=== PATIENT | female | born 1945 | race Caucasian/White ===

== ENCOUNTER 2016-12-20 09:15 | Inpatient (IN) | payer BC ==
[2016-12-19 16:01] LABS: BASOPHILS 1.2 %; BASOPHILS ABSOLUTE 0.06 10/3/uL (0.0-0.16); EOSINOPHILS 6.5 %; EOSINOPHILS ABSOLUTE 0.32 10/3/uL (0.0-0.53); HEMATOCRIT 32.2 % (36.0-48.0); HEMOGLOBIN 10.5 g/dL (12.0-16.0); IMMATURE GRANULOCYTES 0.2 %; IMMATURE GRANULOCYTES ABSOLUTE 0.01 10/3/uL (0.0-0.11); LYMPHOCYTES ABSOLUTE 1.39 10/3/uL (0.67-4.30); MEAN CORPUS HGB CONC 32.6 g/dL (32.0-36.0); MEAN CORPUSCULAR HEMOGLOB 30.9 pg (26.0-34.0); MEAN CORPUSCULAR VOLUME 94.7 fL (80-100); MEAN PLATELET VOLUME 10.1 fL (9.2-13.0); MONOCYTES 12.3 %; MONOCYTES ABSOLUTE 0.61 10/3/uL (0.21-1.20); NEUTROPHILS 51.8 %; NEUTROPHILS ABSOLUTE 2.57 10/3/uL (2.02-8.40); PLATELET COUNT 279 10/3/uL (150-400); RBC DISTRIBUTION WIDTH 15.7 % (12.0-16.0)
[2016-12-19 16:02] LABS: MANUAL DIFF NO %
[2016-12-19 16:08] LABS: INTERNATIONAL NORMAL RATI 1.1 UNITS (-); PROTIME (NOT ORD) 13.7 SEC (12.0-14.5)
[2016-12-19 16:22] LABS: A/G RATIO 1.1 (0.7-1.9); ALBUMIN 3.4 G/DL (3.5-5.0); ALKALINE PHOSPHATASE 66 U/L (45-117); BUN (BLOOD UREA NITROGEN) 17 MG/DL (6-23); CALCIUM, SERUM 8.8 MG/DL (8.5-10.4); CHLORIDE, SERUM 108 MMOL/L (96-112); CO2 (CARBON DIOXIDE) 30 MMOL/L (24-34); CREATININE 1.03 MG/DL (0.55-1.02); GFR AFRICAN AMERICAN 62 ML/MIN (>=60); GFR NON AFRICAN AMERICAN 54 ML/MIN (>=60); GLOBULIN 3.2 G/DL (2.5-4.1); POTASSIUM, SERUM 4.2 MMOL/L (3.5-5.3); SGOT(AST) 16 U/L (5-40); SGPT(ALT) 18 U/L (5-65); SODIUM, SERUM 143 MMOL/L (135-148); TOTAL BILIRUBIN 0.6 MG/DL (0-1.2); TOTAL PROTEIN 6.6 G/DL (6.0-8.5)
[2016-12-19 16:23] LABS: GLUCOSE, SERUM 154 MG/DL (60-99)
[2016-12-19 18:03] LABS: ASCORBIC ACID (UR NOT ORDER) 40 (NEG); BILIRUBIN, URINE NEGATIVE (NEG); KETONE, URINE NEGATIVE (NEG); LEUKOCYTE ESTERASE(NOT OR LARGE (NEG); WBC (NOT ORDERED) (RFLEX) 102 (0-5)
--- NOTE | ~2016-12-20 | OP ---
Record Of Operation [facility] [address] [place]. [address] NAME: DONNELL ALEJANDRE : 41 STATUS : ADM IN PAT#: [id number] AGE: 71 ADM/REG DATE : 12/20/16 MR#: [id number] REPORT SERV DATE: 12/20/16 DICTATED BY: MARILYN SANTOS JR. DATE: 12/20/16 REPORT STATUS : Draft TRANSCRIBED BY: NURY DATE: 12/20/16 DATE OF PROCEDURE: 12/20/2016 PREOPERATIVE DIAGNOSES: Left upper globe non-small cell lung cancer, depression, anxiety disorder, hypertension, granulomatous mediastinal disease, anemia of chronic disease and chronic kidney disease stage II. POSTOPERATIVE DIAGNOSES: Left upper globe non-small cell lung cancer, depression, anxiety disorder, hypertension, granulomatous mediastinal disease, anemia of chronic disease and chronic kidney disease stage II. NAME OF OPERATION: Bronchoscopy, left thoracoscopy with exploration, left posterior lateral thoracotomy with left upper lobectomy, pulmonary artery sleeve resection with primary reconstruction, complete mediastinal node dissection, jarrett stations 5, 7, 9, 11, intercostal nerve block. SURGEON: Marilyn Santos M.D. RESIDENT SURGEON: Jose Miguel Lacy M.D. CATH LAB TECHNOLOGIST: Hipolito Ospina. ANESTHESIA: General endotracheal. FINDINGS: The patient was noted to have non-small cell lung cancer in the left upper lobe. Her margins were grossly negative. She had extensive granulomatous disease with heavily calcified lymph nodes. The mediastinum was densely adherent to the pulmonary artery in which we were unable to dissect a portion of the left upper lobe away from the pulmonary artery. This required occlusion of the pulmonary artery and a sleeve resection with primary reconstruction. The patient was anemic on her preoperative labs. There was blood in her chest, possibly related to her previous lung biopsy. There was also some ecchymosis in the left upper lobe. She did not have a central line put in, and this was found as we first entered the chest cavity. Final pathology is pending. DETAILS OF OPERATION: After adequate general anesthesia, the patient was intubated. Bronchoscopy was performed with above findings noted. There was no contraindication to resection. A left-sided double-lumen endotracheal tube was placed. The patient was then positioned in the right lateral decubitus position. The left chest was prepped and draped in routine sterile fashion. A small incision was made overlying the lower intercostal space. A separate anterior trocar incision was made. Through these two incision sites, the chest was explored. The decision was made to go ahead with the left upper lobectomy. She had a complete fissure. Inferior pulmonary ligament was divided. The inferior pulmonary vein was identified. The superior pulmonary vein was identified and transected with the vascular stapler. When we got to the pulmonary artery region, the lung and granulomatous lymph nodes were densely adherent such that dissection was not realistic. We elected to convert to a posterolateral thoracotomy incision. Dissection was then carried out in the Record Of Operation [address] [address] NAME: DONNELL ALEJANDRE : 41 STATUS : ADM IN [facility]#: [id number] AGE: 71 ADM/REG DATE : 12/20/16 MR#: [id number] REPORT SERV DATE: 12/20/16 DICTATED BY: MARILYN SANTOS JR. DATE: 12/20/16 REPORT STATUS : Draft TRANSCRIBED BY: NURY DATE: 12/20/16 standard fashion entering into the 5th intercostal space. The ribs were spread, but not fractured. An intercostal muscle dangle was performed. Maneuver was performed. The only way we could get to the pulmonary artery was through the fissure. The fissure was opened up. The pulmonary arterial branches were identified, where several could be removed, could be divided with a vascular stapler. The bronchus was then divided with a ELIZABETH stapler. We had one large trunk coming off the pulmonary artery where the lung was densely adherent with surrounding granulomatous tissue. The only way we could remove this was to provided complete occlusion of the pulmonary artery. This was performed with Roselia clamps. We then removed a section of the pulmonary artery followed by closure with multiple interrupted pledgeted Prolene sutures as well as running Prolene sutures. The clamp was removed, noting good hemostasis. The lobe was removed out of the chest. Nodes from the AP window, subcarinal, inferior pulmonary ligament, hilar regions were removed. Adequate hemostasis was obtained. A 20-St Helenian chest tube was placed. The lung was reinflated. The trocar sites were closed with running Vicryl sutures. The thoracotomy incision was closed with running Vicryl sutures. The skin was closed with running monofilament suture. A Dermabond dressing was applied. The procedure was terminated at this point. The patient tolerated the procedure well, taken back to recovery room in stable condition. EVE/NURY Marilyn Santos Jr., M.D. / [id number] CC: Ani Heck Jr., M.D. Catherine Martinez, M.D.
[~2016-12-20 09:15] MED LIST: CENTRUM PO; COZAAR100 MG PO; CYMBALTA30 PO; PRAVAC PO; TRAZ50 PO; VITAMIN D31000 UNIT PO; VITC500 PO; VITE PO
[2016-12-20 16:43] LABS: BASOPHILS 0.2 %; BASOPHILS ABSOLUTE 0.02 10/3/uL (0.0-0.16); EOSINOPHILS 0.1 %; EOSINOPHILS ABSOLUTE 0.01 10/3/uL (0.0-0.53); HEMATOCRIT 29.9 % (36.0-48.0); IMMATURE GRANULOCYTES 0.2 %; IMMATURE GRANULOCYTES ABSOLUTE 0.02 10/3/uL (0.0-0.11); LYMPHOCYTES 4.9 %; LYMPHOCYTES ABSOLUTE 0.48 10/3/uL (0.67-4.30); MEAN CORPUS HGB CONC 33.4 g/dL (32.0-36.0); MEAN CORPUSCULAR HEMOGLOB 31.4 pg (26.0-34.0); MEAN PLATELET VOLUME 10.1 fL (9.2-13.0); MONOCYTES 3.5 %; MONOCYTES ABSOLUTE 0.34 10/3/uL (0.21-1.20); NEUTROPHILS 91.1 %; NEUTROPHILS ABSOLUTE 8.86 10/3/uL (2.02-8.40); PLATELET COUNT 254 10/3/uL (150-400); RBC DISTRIBUTION WIDTH 15.5 % (12.0-16.0); RED CELL COUNT 3.18 10/6/uL (4.0-5.6)
[2016-12-20 16:46] LABS: MANUAL DIFF NO %; WHITE BLOOD CELLS 9.7 10/3/uL (4.5-10.5)
[2016-12-20 16:55] LABS: BUN (BLOOD UREA NITROGEN) 15 MG/DL (6-23); CALCIUM, SERUM 8.4 MG/DL (8.5-10.4); CHLORIDE, SERUM 105 MMOL/L (96-112); CO2 (CARBON DIOXIDE) 26 MMOL/L (24-34); CREATININE 0.84 MG/DL (0.55-1.02); GFR AFRICAN AMERICAN 80 ML/MIN (>=60); GFR NON AFRICAN AMERICAN 69 ML/MIN (>=60); GLUCOSE, SERUM 129 MG/DL (60-99); POTASSIUM, SERUM 4.5 MMOL/L (3.5-5.3); SODIUM, SERUM 139 MMOL/L (135-148)
[2016-12-21 05:44] LABS: BASOPHILS 0.1 %; BASOPHILS ABSOLUTE 0.01 10/3/uL (0.0-0.16); EOSINOPHILS 0 %; HEMATOCRIT 29.8 % (36.0-48.0); HEMOGLOBIN 9.8 g/dL (12.0-16.0); IMMATURE GRANULOCYTES 0.4 %; IMMATURE GRANULOCYTES ABSOLUTE 0.04 10/3/uL (0.0-0.11); LYMPHOCYTES 5.8 %; LYMPHOCYTES ABSOLUTE 0.58 10/3/uL (0.67-4.30); MEAN CORPUS HGB CONC 32.9 g/dL (32.0-36.0); MEAN CORPUSCULAR HEMOGLOB 31.4 pg (26.0-34.0); MEAN CORPUSCULAR VOLUME 95.5 fL (80-100); MEAN PLATELET VOLUME 10.3 fL (9.2-13.0); MONOCYTES 11.5 %; MONOCYTES ABSOLUTE 1.16 10/3/uL (0.21-1.20); NEUTROPHILS 82.2 %; NEUTROPHILS ABSOLUTE 8.28 10/3/uL (2.02-8.40); PLATELET COUNT 245 10/3/uL (150-400); RBC DISTRIBUTION WIDTH 15.7 % (12.0-16.0); RED CELL COUNT 3.12 10/6/uL (4.0-5.6); WHITE BLOOD CELLS 10.1 10/3/uL (4.5-10.5)
[2016-12-21 05:50] LABS: MANUAL DIFF NO %
[2016-12-21 05:57] LABS: BUN (BLOOD UREA NITROGEN) 17 MG/DL (6-23); CALCIUM, SERUM 8.5 MG/DL (8.5-10.4); CHLORIDE, SERUM 100 MMOL/L (96-112); CO2 (CARBON DIOXIDE) 23 MMOL/L (24-34); CREATININE 1.01 MG/DL (0.55-1.02); GFR AFRICAN AMERICAN 64 ML/MIN (>=60); GFR NON AFRICAN AMERICAN 55 ML/MIN (>=60); POTASSIUM, SERUM 4.9 MMOL/L (3.5-5.3); SODIUM, SERUM 135 MMOL/L (135-148)
[2016-12-21 05:58] LABS: GLUCOSE, SERUM 162 MG/DL (60-99)
[2016-12-22 05:04] LABS: CALCIUM, SERUM 7.6 MG/DL (8.5-10.4); CHLORIDE, SERUM 94 MMOL/L (96-112); CO2 (CARBON DIOXIDE) 24 MMOL/L (24-34); CREATININE 1.35 MG/DL (0.55-1.02); GFR AFRICAN AMERICAN 45 ML/MIN (>=60); GFR NON AFRICAN AMERICAN 39 ML/MIN (>=60); POTASSIUM, SERUM 4.7 MMOL/L (3.5-5.3)
[2016-12-22 05:07] LABS: BUN (BLOOD UREA NITROGEN) 25 MG/DL (6-23); GLUCOSE, SERUM 94 MG/DL (60-99); SODIUM, SERUM 128 MMOL/L (135-148)
[2016-12-22] MEDS ORDERED: PCET PO (10:15)
[2016-12-22] MEDS ORDERED: MIRALAX POWDER1 PKT PO (10:15)
== END 2016-12-22 15:45 | disposition home or self-care (01) | DRG 163 ==
LOC: SDC/OF 09:15 → PACU 16:17 → 5NO 17:50
PROVIDERS: Nurse Practitioner Acute Care; Thoracic Surgery (Cardiothoracic Vascular Surgery)
PROC: 3E0T3BZ Introduction of Anesthetic Agent into Peripheral Nerves and Plexi, Percutaneous Approach (ICD-10-PCS; 2016-12-20)
PROC: 02B Heart and Great Vessels, Excision (ICD-10-PCS; principal; 2016-12-20 11:30)
PROC: 0BTG0ZZ Resection of Left Upper Lung Lobe, Open Approach (ICD-10-PCS; 2016-12-20 11:30)
PROC: 07B70ZZ Excision of Thorax Lymphatic, Open Approach (ICD-10-PCS; 2016-12-20 11:30)
DX: C34.12 Malignant neoplasm of upper lobe, left bronchus or lung (principal); J98.59 Other diseases of mediastinum, not elsewhere classified; F32.9 Major depressive disorder, single episode, unspecified; F41.9 Anxiety disorder, unspecified; D63.8 Anemia in other chronic diseases classified elsewhere; N18.2 Chronic kidney disease, stage 2 (mild); I12.9 Hypertensive chronic kidney disease with stage 1 through stage 4 chronic kidney disease, or unspecified chronic kidney disease; K21.9 Gastro-esophageal reflux disease without esophagitis
CPT/HCPCS: 36415; 71010; 71020; 80048; 80053; 81001; 82962; 83036; 85025; 85610; 86850; 86900; 86901; 86920; 87086; 87641; 88305; 88309; 88311; 88313; 88331; 93005; 94010; 94640; 94726; 94729; A9270-GY; G0463; J0690; J1885; J2250; J2370; J2710; J2795; J3010